=== PATIENT | female | born 1975 | race African-American/Black ===

== ENCOUNTER 2024-08-11 10:28 | Outpatient (CLI) | payer OTHER, SELFPAY ==
--- NOTE | 2024-08-11 10:36 | ECG_ITS ---
Test Date: 2024-08-11 10:55:46 Measurements Intervals [place] Rate: 71 P: 45 ND: 181 QRS: 62 QRSD: 90 T: 20 QT: 374 QTc: 407 Interpretive Statements SINUS RHYTHM WITH SINUS ARRHYTHMIA BASELINE ARTIFACT- I, II, AVR NORMAL ECG No previous ECG available for comparison Electronically Signed On 08-11-2024 10:57:48 EVAPORATOR OPERATOR by Lamberto Lai D.O.
[2024-08-11 11:35] LABS: Hematocrit 31.7 % (37.0-47.0); Hemoglobin 9.8 g/dL (12.0-15.0); Mean Corpuscular HGB Conc 30.9 g/dl (32-36); Mean Corpuscular Hemoglobin 26.1 pg (26-34); Mean Corpuscular Volume 84.5 fl (80-100); Mean Platelet Volume 9.2 fl (7.4-10.4); Platelet Count Result 367 k/mm3 (150-375); Red Blood Count 3.75 M/mm3 (4.2-5.4); Red Cell Distribution Width 13.9 % (11.5-14.5); White Blood Count 5.9 K/mm3 (4.5-10.0)
== END 2024-08-11 10:29 | disposition home or self-care (01) ==
PROVIDERS: PCP Internal Medicine; Visit Provider Obstetrics & Gynecology
DX: Z01.818 Encounter for other preprocedural examination (principal); I49.8 Other specified cardiac arrhythmias; N92.0 Excessive and frequent menstruation with regular cycle; I10 Essential (primary) hypertension
CPT/HCPCS: 36415; 85027; 86850; 86900; 86901; 93005

== ENCOUNTER 2024-09-07 07:52 | Outpatient (CLI) | payer OTHER, SELFPAY | END 2024-09-07 07:53 | disposition home or self-care (01) | LOC: ANHSURGERY 08:09 | PROVIDERS: PCP Internal Medicine; Visit Provider Obstetrics & Gynecology | DX: Z01.818 Encounter for other preprocedural examination (principal); N85.2 Hypertrophy of uterus | CPT/HCPCS: 36415; 86850; 86900; 86901 ==

== ENCOUNTER 2024-10-23 09:21 | Outpatient (CLI) | payer OTHER, SELFPAY ==
[2024-10-23 10:07] LABS: Hematocrit 29.3 % (37.0-47.0); Hemoglobin 8.9 g/dL (12.0-15.0); Mean Corpuscular HGB Conc 30.4 g/dl (32-36); Mean Corpuscular Hemoglobin 22.9 pg (26-34); Mean Corpuscular Volume 75.3 fl (80-100); Platelet Count Result 374 k/mm3 (150-375); Red Blood Count 3.89 M/mm3 (4.2-5.4); Red Cell Distribution Width 17.4 % (11.5-14.5); White Blood Count 6.5 K/mm3 (4.5-10.0)
== END 2024-10-23 09:22 | disposition home or self-care (01) ==
PROVIDERS: PCP Internal Medicine; Visit Provider Obstetrics & Gynecology
DX: D25.9 Leiomyoma of uterus, unspecified (principal)
CPT/HCPCS: 36415; 85027; 86850; 86900; 86901

== ENCOUNTER 2024-10-26 00:36 | Day surgery (SDC) | payer OTHER, SELFPAY ==
[2024-08-09 11:03] VITALS: BMI 35.8
--- NOTE | 2024-08-09 11:04 | PC.NURSE ---
Report to the Outpatient Waiting Room, entrance under the green pavilion located off [facility], at time _0600_ on date _[id number]_. Planned Procedure Time: _0730_.? Time changes happen often and if your time is changed the preop area will call you the afternoon before. - You and your visitor will be asked to self-screen and do not enter if you have any COVID symptoms. Please call surgeon if you need to reschedule. - A mask is optional within the hospital at this time. Patients may have clear liquids (water, carbonated beverages, clear teas, apple juice) until 3 hours prior to surgery with a maximum of 20 ounces. - No food from midnight until time of surgery and no smoking Take only the following medications with a SIP of water on the morning of surgery: __Diltiazem__ DO NOT STOP ANY OF YOUR OTHER PRESCRIPTION MEDICATIONS PRIOR TO SURGERY EXCEPT THE FOLLOWING Medications to discontinue per physician ___Vitamins and supplements___ Date to take last aufk__[id number]___ Please no make-up, nail maldivian, hairspray, perfume, deodorant, or body powder the day of surgery.? No jewelry (including any body piercings) or valuables the day of surgery, leave them at home.? Please take a shower or bath the night before, or the morning of, surgery with an antibacterial soap.? Wear comfortable, loose fitting clothing.? - Jewelry must be removed prior to entering the operating room.? Rings and piercings that are not removed may be cut off. - The hospital will not accept responsibility for valuables.? - Please leave all valuables, including medications, at home the day of surgery. If you are going home after surgery, a licensed national dedicated truck driver must drive you home.? - NO public transportation without another adult if you receive anesthesia. - We recommend that an adult stay with you for 24 hours following discharge. - We also recommend that you do not drive, make important decision, drink alcoholic beverages, or take any drugs that were not prescribed by your health care provider for at least 24 hours after your discharge time. Follow any additional instructions given to you from your surgeon. Telephone instructions given to __Cheryle__and asked if any additional questions and then verbalized understanding. Patient advised to call surgeon office or pre surgery nurse liaison [phone] if any additional questions.
--- NOTE | 2024-09-05 12:23 | PC.NURSE ---
Patient states, there are no changes in health history or medications since last interview. She will come to [facility] for her Type and Screen.
--- NOTE | 2024-09-05 12:27 | PC.NURSE ---
Report to the Outpatient Waiting Room, entrance under the green pavilion located off [facility], at 0630 on 09-14-24. Planned Procedure Time: 0830.? Time changes happen often and if your time is changed the preop area will call you the afternoon before. - You and your visitor will be asked to self-screen and do not enter if you have any COVID symptoms. Please call surgeon if you need to reschedule. - A mask is optional within the hospital at this time. Patients may have clear liquids (water, carbonated beverages, clear teas, apple juice) until 3 hours prior to surgery with a maximum of 20 ounces. 0530 - No food from midnight until time of surgery and no smoking. This includes no chewing gum, candy or mints. - Infants may have breast milk until 4 hours before surgery, infant formula 6 hours prior to surgery. - Children will be allowed to drink immediately following surgery.? If applicable, please bring a bottle or sippy cup to assist with drinking. Juice, water, soda, and popsicles are readily available.? For infants on formula, please bring formula the day of surgery.? Pacifiers are allowed. Take only the following medications with a SIP of water on the morning of surgery: Diltiazem DO NOT STOP ANY OF YOUR OTHER PRESCRIPTION MEDICATIONS PRIOR TO SURGERY EXCEPT THE FOLLOWING Medications to discontinue per physician: Vitamins and supplements Date to take last dose: 09-11-24 Please no make-up, nail nepali, hairspray, perfume, deodorant, or body powder the day of surgery.? No jewelry (including any body piercings) or valuables the day of surgery, leave them at home.? Please take a shower or bath the night before, or the morning of, surgery with an antibacterial soap.? Wear comfortable, loose fitting clothing.? Children are encouraged to wear pajamas. - Jewelry must be removed prior to entering the operating room.? Rings and piercings that are not removed may be cut off. - The hospital will not accept responsibility for valuables.? - Please leave all valuables, including medications, at home the day of surgery. If you are going home after surgery, a licensed sales route driver helper must drive you home.? - NO public transportation without another adult if you receive anesthesia. - We recommend that an adult stay with you for 24 hours following discharge. - We also recommend that you do not drive, make important decision, drink alcoholic beverages, or take any drugs that were not prescribed by your health care provider for at least 24 hours after your discharge time. For Pediatric surgeries, we recommend two adults accompany the child home. Follow any additional instructions given to you from your surgeon. Telephone instructions given to Cheryle Naranjo and asked if any additional questions and then verbalized understanding. Patient advised to call surgeon office or pre surgery nurse liaison [phone] if any additional questions.
--- NOTE | 2024-10-18 10:22 | PC.NURSE ---
Report to the Outpatient Waiting Room, entrance under the green pavilion located off [facility], at time _0800_ on date _[id number]_. Planned Procedure Time: _1000_.? Time changes happen often and if your time is changed the preop area will call you the afternoon before. - You and your visitor will be asked to self-screen and do not enter if you have any COVID symptoms. Please call surgeon if you need to reschedule. - A mask is optional within the hospital at this time. Patients may have clear liquids (water, carbonated beverages, clear teas, apple juice) until 3 hours prior to surgery with a maximum of 20 ounces. - No food from midnight until time of surgery and no smoking. This includes no chewing gum, candy or mints. Take only the following medications with a SIP of water on the morning of surgery: ___Diltiazem____ DO NOT STOP ANY OF YOUR OTHER PRESCRIPTION MEDICATIONS PRIOR TO SURGERY EXCEPT THE FOLLOWING Medications to discontinue per physician ___Vitamin___ Date to take last okon____[id number]___ Please no make-up, nail serbian, hairspray, perfume, deodorant, or body powder the day of surgery.? No jewelry (including any body piercings) or valuables the day of surgery, leave them at home.? Please take a shower or bath the night before, or the morning of, surgery with an antibacterial soap.? Wear comfortable, loose fitting clothing.? - Jewelry must be removed prior to entering the operating room.? Rings and piercings that are not removed may be cut off. - The hospital will not accept responsibility for valuables.? - Please leave all valuables, including medications, at home the day of surgery. If you are going home after surgery, a licensed concrete pile driver operator must drive you home.? - NO public transportation without another adult if you receive anesthesia. - We recommend that an adult stay with you for 24 hours following discharge. - We also recommend that you do not drive, make important decision, drink alcoholic beverages, or take any drugs that were not prescribed by your health care provider for at least 24 hours after your discharge time. Follow any additional instructions given to you from your surgeon. Telephone instructions given to __Erisi__and asked if any additional questions and then verbalized understanding. Patient advised to call surgeon office or pre surgery nurse liaison [phone] if any additional questions.
--- NOTE | 2024-10-18 10:30 | PC.NURSE ---
Patient says is taking and antibiotic fa a UTI that will be completed before surgery date. Says no other changes to health hx.
--- NOTE | 2024-10-23 15:39 | PM.IMHP ---
H&P: HPI History of Present Illness Date/Time: 10/23/24 15:39 49-year-old 3 para 3003 female presents with complaints of menstrual cycles lasting 7-8 days with 4-5 days very heavy with clotting and cramping as well as significant amount of discomfort during her cycles. Also relates left lower quadrant pain throughout the month especially with increasing activity. She has had known chronic anemia with a most recent hemoglobin of 8.9, also ultrasound which revealed [id number] uterus with multiple fibroids, largest being left lateral 7cm fibroid. She does relate fatigue and tiredness, especially during her menstrual cycle. Presents therefore today for robotic assisted laparoscopic hysterectomy with bilateral salpingectomy, no oophorectomy. History significant for vaginal delivery x3, no prior abdominal or pelvic surgery. Chief Complaint: Symptomatic uterine fibroids Review of Systems Review of Systems: All systems reviewed & are unremarkable except as noted in HPI and below PMFSH Past Medical History Medical History Screening mammogram, encounter for Hypertension Social History Social History Smoking status: Never smoker Second hand tobacco smoke exposure: No Alcohol intake: current Alcohol use details: occasionally Substance use: current Substance use type: marijuana Other substance usage details: Edible here and there, not every day. Do You Feel Safe in your Home?: Yes Lack of Transportation: No Lack of Food: Never True Current Housing: Decline to Answer Concerned About Future Housing: Decline to Answer Difficulty Paying Gas/Electric Bills: Decline to Answer Difficulty Paying for Meds: Decline to Answer Currently Unemployed: Decline to Answer Education: Decline to Answer Difficulty w/ Childcare or Family Care: Decline to Answer Living arrangements: with family Additional living arrangements comments: single Occupation/Education: occupation Additional occupation/education comments: [employer] Gender identity (if verbalized by the patient): Female Sexual Orientation (if Verbalized by the Patient): Straight or Heterosexual Spiritual care concerns: No Meds Home Medications and Allergies Home Medications ?Medication ?Instructions ?Recorded ?Confirmed ?Type losartan 50 mg tablet 100 mg PO DAILY 05/23/24 08/21/24 History ascorbic acid-ascorbate 0.75 ml PO DAILY 08/09/24 08/21/24 History calcium-ascorbate sod 500 mg/15 mL oral liquid (Vitamin C) diltiazem HCl 180 mg 180 mg PO DAILY 08/09/24 08/21/24 History capsule,extended release 24 hr, controlled Allergies Allergy/AdvReac Type Severity Reaction Status Date / Time No Known Allergies Allergy Verified 10/18/24 10:22 Exam Const: General: cooperative and healthy appearing Resp: Effort & Inspection: normal respiratory effort Auscultation: clear to auscultation bilaterally Cardio: Rate: regular rate Rhythm: regular rhythm GI: Inspection: normal to inspection Auscultation: normal bowel sounds : External Female Exam: normal external appearance Speculum Exam - Vagina: normal appearance of the vagina Speculum Exam - Cervix: normal appearance of the cervix Bimanual exam- vagina & uterus: enlarged ( 12-14 week size with multiple fibroids palpated) Bimanual Exam- Adnexa, other: normal adnexae Assessment and Plan Assessment and plan (1) Menorrhagia: Code(s): N92.0 - Excessive and frequent menstruation with regular cycle Status: Acute (2) Dysmenorrhea: Code(s): N94.6 - Dysmenorrhea, unspecified Status: Acute (3) Bulky or enlarged uterus: Code(s): N85.2 - Hypertrophy of uterus Status: Acute (4) Fibroid uterus: Code(s): D25.9 - Leiomyoma of uterus, unspecified Status: Acute (5) Anemia: Code(s): D64.9 - Anemia, unspecified Status: Acute Plan proceed with robotic assisted laparoscopic total hysterectomy with bilateral salpingectomy, no oophorectomy. I have also discussed patient that we will start the procedure laparoscopically and there is potential for her to have the procedure completed with a laparotomy incision due to lack of visualization or difficulty removing specimen. I have discussed with her also this potentially could increase her length of stay as well as postoperative recovery time. Patient states good understanding, questions been answered, and she desires to proceed with procedure as listed above.
--- NOTE | 2024-10-25 16:09 | WPDANESEPPF ---
Anes - Initial Pre Proc Eval Procedure: Operation Date: 10/26/24 10:00 Proposed Procedures p Robotic Assisted Total Laparoscopic Hysterectomy with Bilateral Salpingectomy - Stefan Moreno MD <Raz Babcock, DO - Last Filed: 10/25/24 16:09> Date/Time: 10/25/24 16:09 <Raz Babcock, DO - Last Filed: 10/25/24 16:09> Surgeon: Stefan Moreno MD <Raz Babcock, DO - Last Filed: 10/25/24 16:09> Pre Op Diagnosis: uterine hypertrophy <Raz Babcock DO - Last Filed: 10/25/24 16:09> Patient Data Age: 49 Gender: F Height: 1.73 m Weight: 106.8 kg <Raz Babcock DO - Last Filed: 10/25/24 16:09> Allergies Allergy/AdvReac Type Severity Reaction Status Date / Time No Known Allergies Allergy Verified 10/26/24 09:37 <Raz Babcock DO - Last Filed: 10/25/24 16:09> Home Medications ?Medication ?Instructions ?Recorded ?Confirmed ?Type losartan 50 mg tablet 100 mg PO DAILY 05/23/24 10/26/24 History ascorbic acid-ascorbate 0.75 ml PO DAILY 08/09/24 10/26/24 History calcium-ascorbate sod 500 mg/15 mL oral liquid (Vitamin C) diltiazem HCl 180 mg 180 mg PO DAILY 08/09/24 08/21/24 History capsule,extended release 24 hr, controlled <Raz Babcock, DO - Last Filed: 10/25/24 16:09> Patient hx anesthesia problems: none <Everardo Sánchez MD - Last Filed: 10/26/24 09:45> Family hx anesthesia problems: none <Everardo Sánchez MD - Last Filed: 10/26/24 09:45> Results Review: All pre-operative results and documents have been reviewed as part of the pre-operative evaluation. <Raz Babcock DO - Last Filed: 10/25/24 16:09> [facility] Past Medical History Medical History: Medical History (Updated 10/25/24 @ 16:09 by Raz Babcock DO) Fibroid uterus Anemia Screening mammogram, encounter for Hypertension <Raz Babcock DO - Last Filed: 10/25/24 16:09> Surgical History Surgical History: Surgical History (Updated 10/26/24 @ 09:44 by Everardo Sánchez MD) History of tubal ligation <Raz Babcock DO - Last Filed: 10/25/24 16:09> Social History Social History: Social History Smoking status: Never smoker Second hand tobacco smoke exposure: No Alcohol intake: current Alcohol use details: occasionally Substance use: current Substance use type: marijuana Other substance usage details: Edible here and there, not every day. Do You Feel Safe in your Home?: Yes Lack of Transportation: No Lack of Food: Never True Current Housing: Decline to Answer Concerned About Future Housing: Decline to Answer Difficulty Paying Gas/Electric Bills: Decline to Answer Difficulty Paying for Meds: Decline to Answer Currently Unemployed: Decline to Answer Education: Decline to Answer Difficulty w/ Childcare or Family Care: Decline to Answer Living arrangements: with family Additional living arrangements comments: single Occupation/Education: occupation Additional occupation/education comments: [employer] Gender identity (if verbalized by the patient): Female Sexual Orientation (if Verbalized by the Patient): Straight or Heterosexual Spiritual care concerns: No <Raz Babcock DO - Last Filed: 10/25/24 16:09> Anes - Eval Final PreProcedure Day of Procedure 10/25/24 16:09 <Raz Babcock DO - Last Filed: 10/25/24 16:09> Patient weight: obese <Everardo Sánchez MD - Last Filed: 10/26/24 09:45> Heart: regular rate and rhythm <Everardo Snáchez MD - Last Filed: 10/26/24 09:45> Lungs: clear to auscultation <Everardo Sánchez MD - Last Filed: 10/26/24 09:45> Airway: Mallampati scale class II <Everardo Sánchez MD - Last Filed: 10/26/24 09:45> Neurological: alert and oriented <Everardo Sánchez MD - Last Filed: 10/26/24 09:45> Last oral intake: >/= 8 hours <Everardo Sánchez MD - Last Filed: 10/26/24 09:45> ASA classification: II <Everardo Sánchez MD - Last Filed: 10/26/24 09:45> Emergent: no <Everardo Sánchez MD - Last Filed: 10/26/24 09:45> Anesthetic plan: proceed <Everadro Sánchez MD - Last Filed: 10/26/24 09:45> Anesthesia type and monitoring: general ETT and standard monitoring <Everardo Sánchez MD - Last Filed: 10/26/24 09:45> Results Review: All pre-operative results and documents have been reviewed as part of the pre-operative evaluation. <Raz Babcock DO - Last Filed: 10/25/24 16:09> Informed Consent: The patient's anesthetic plan and its attendant risks and benefits were discussed with the patient/family/POA. Questions were solicited and answers provided to the satisfaction of the patient/family/POA. <Raz Babcock DO - Last Filed: 10/25/24 16:09>
[2024-10-26] VITALS (12 sets, daily range): BP systolic 117–147; BP diastolic 78–92; PULSE 63–96; RESP 12–20; TEMP 35.5–36.6; O2SAT 95–100
--- NOTE | 2024-10-26 06:14 | WPDHPUPDATE1 ---
History and Physical Update Update Date/Time: 10/26/24 06:14 History and Physical has been reviewed, including an updated exam of the patient. There are NO changes in the patient's condition. Risks, benefits, and alternatives have been discussed and questions answered. Patient agrees to proceed with procedure.
[2024-10-26] MEDS: LACTATED RINGERS 1,000 ML 30 ML IV CONT (08:40)
[2024-10-26] MEDS: ACETAMINOPHEN 500 MG TABLET 1000 MG PO ×3 (08:40→21:00)
[2024-10-26] MEDS: KETOROLAC 15 MG/ML VIAL (*BKC) IV PUSH (08:40)
[2024-10-26 09:37] LABS: BEDSIDEPREGUCG Negative (Negative)
[2024-10-26] MEDS: ceFAZolin 2 GM/D5W 50 ML 2 GM/50 ML BAG IVPB (09:58)
--- NOTE | 2024-10-26 11:39 | W.PM.PROC2 ---
Procedure Note - Detailed Date of Procedure 10/26/24 Pre-op Diagnosis 1. Symptomatic uterine fibroids 2. Anemia Post-op Diagnosis Same Procedure Performed Description of procedure: Patient prepped and draped usual manner for this procedure. Cervical instruments were placed for uterine mobility throughout the case. Abdominal trocar sites were then marked and trocars were placed under direct visualization. Trocars were attached to the de Nery system and instruments were placed as well. Findings were noted as below. Surgeon moved to the console and round ligaments bilaterally were cauterized and cut and bladder flap was developed. The left lateral fibroid was then bluntly dissected off the pelvic sidewall without difficulty and at this point the posterior leaf the broad ligament was incised. Uterine vessels were dissected and cauterized and cut. Posterior cul-de-sac was then entered and this incision was carried circumferentially to separate the cervix from the vagina. The uterus and fibroid could not be removed together therefore the uterus was excised from the uterus the uterus was delivered followed by the fibroid without difficulty. Cuff was then closed using V lock suture from the right angle to midline and left angle midline with good approximation hemostasis noted irrigation was undertaken and there was no bleeding hematoma was placed empirically throughout the pelvic bed. This point seizure was considered terminated, gas was allowed to escape, trocars removed and incisions approximated using 4-0 Monocryl. Patient was sent to recovery room in stable condition. Surgeon Stefan Moreno MD Anesthesia General Findings Enlarged uterus with fibroids with weight of 425 g Description of Procedure Procedure performed: Robotic assisted total laparoscopic hysterectomy with bilateral salpingectomy, no oophorectomy Estimated Blood Loss 200 Drains No Packing No Pathology Yes Complications No immediate complications Condition Stable Disposition PACU [facility] Billing Surgery - Charge Forward: Surgery Billing
[2024-10-26] MEDS: fentaNYL CITRATE INJ (*CRX) 100 MCG/2 ML VIAL 25 MCG IV PUSH ×4 (12:05→13:15)
[2024-10-26] MEDS: ONDANSETRON INJ 4 MG/2 ML VIAL IV PUSH (12:08)
[2024-10-26] MEDS: diphenhydrAMINE HCl INJ 50 MG/ML VIAL 25 MG IV PUSH (12:54)
[2024-10-26] MEDS: SCOPOLAMINE 1 MG PATCH 1 PATCH TRANSDERM (12:55)
--- NOTE | 2024-10-26 13:30 | ADMGEN ---
This patient, Cheryle Naranjo, was admitted to OB 2nd Floor Room 283-00. Patient/family oriented to hospital policies and general routines including ID bracelet, bed and alarms, visiting hours, pain management, procedures, bathroom and other care routines, personal items, smoking policy, room service/diet, and visiting hours. Information on how to activate the Rapid Response Team has been discussed. Patient/Family are encouraged to report perceived risks to care and to ask questions if they do not understand what they are told or what they should do.
[2024-10-26] MEDS: DEXTROSE 5%/0.45% SOD CHL 1,000 ML 125 ML IV CONT (13:51)
[2024-10-26] MEDS: MORPHINE SULFATE (*CRX) 4 MG/ML INJ IV PUSH (13:51)
--- NOTE | 2024-10-26 13:53 | PC.NURSE ---
On 10/26/24, the [employer] student, Chaya, provided care and completed [facility] documentation on this patient. I have reviewed the student's documentation and agree with the findings.
[2024-10-26] MEDS: SIMETHICONE 80 MG TAB.CHEW PO ×2 (14:52→17:33)
[2024-10-26] MEDS: KETOROLAC 30 MG/ML VIAL (*BKC) IV PUSH ×2 (14:52→20:59)
[2024-10-26] MEDS: DOCUSATE SODIUM 100 MG CAPSULE PO (17:33)
[2024-10-27] VITALS (11 sets, daily range): BP systolic 100–134; BP diastolic 62–86; PULSE 70–88; RESP 14–18; TEMP 36.4–37.2; O2SAT 97–100
[2024-10-27] MEDS: ACETAMINOPHEN 500 MG TABLET 1000 MG PO ×3 (03:02→14:50)
[2024-10-27] MEDS: KETOROLAC 30 MG/ML VIAL (*BKC) IV PUSH (03:03)
[2024-10-27 05:52] LABS: Basophils Percent Auto 0.1 % (0.2-1.2); Eosinophils Percent Auto 0.1 % (0-4.4); Hematocrit 24.8 % (37.0-47.0); Hemoglobin 7.3 g/dL (12.0-15.0); Immature Granulocyte Absolute 0.04 K/mm3 (0.00-0.031); Immature Granulocyte Percent A 0.4 % (0-0.5); Lymphocytes Absolute Auto 1.14 K/mm3 (0.9-3.2); Lymphocytes Percent Auto 10.9 % (18.3-44.2); Mean Corpuscular HGB Conc 29.4 g/dl (32-36); Mean Corpuscular Hemoglobin 22.5 pg (26-34); Mean Corpuscular Volume 76.5 fl (80-100); Mean Platelet Volume 9.6 fl (7.4-10.4); Monocytes Absolute Auto 0.9 K/mm3 (0.1-0.6); Neutrophils Absolute Auto 8.3 K/mm3 (1.3-6.7); Neutrophils Percent Auto 79.5 % (45.5-73.1); Platelet Count Result 345 k/mm3 (150-375); Red Blood Count 3.24 M/mm3 (4.2-5.4); Red Cell Distribution Width 17.4 % (11.5-14.5); White Blood Count 10.5 K/mm3 (4.5-10.0)
[2024-10-27 06:28] LABS: Acanthocytes 1+; Burr Cells 1+; Ovalocytes 1+; Platelet Estimate Adequate (Adequate); Schistocytes None Seen
[2024-10-27 06:29] LABS: Anisocytosis 1+; Hypochromasia 1+
[2024-10-27] MEDS: SIMETHICONE 80 MG TAB.CHEW PO ×2 (08:21→14:50)
[2024-10-27] MEDS: DOCUSATE SODIUM 100 MG CAPSULE PO (08:21)
[2024-10-27] MEDS: dilTIAZem HCL CD 180 MG CAP.24HR PO (08:22)
[2024-10-27] MEDS: IBUPROFEN 600 MG TABLET PO ×2 (08:22→14:50)
[2024-10-27] MEDS: SODIUM CHLORIDE 0.9% IV 250 ML 30 ML IV CONT (08:22)
[2024-10-27] MEDS: LOSARTAN POTASSIUM 50 MG TABLET 100 MG PO (08:22)
[2024-10-27] MEDS: SODIUM CHLORIDE 0.9% IV 250 ML 30 ML (08:24)
== END 2024-10-27 15:40 | disposition home or self-care (01) ==
LOC: ANHSURGERY 07:34 → ANHOB2 13:29
PROVIDERS: PCP Internal Medicine; Visit Provider Obstetrics & Gynecology
PROC: (CPT 58572; principal; 2024-10-26 10:00)
DX: D25.1 Intramural leiomyoma of uterus (principal); D25.0 Submucous leiomyoma of uterus; D25.2 Subserosal leiomyoma of uterus; N80.03 Adenomyosis of the uterus; I10 Essential (primary) hypertension; G89.18 Other acute postprocedural pain; D64.9 Anemia, unspecified; F12.90 Cannabis use, unspecified, uncomplicated; Z98.890 Other specified postprocedural states; Z98.51 Tubal ligation status
CPT/HCPCS: 58572; S2900; 36415; 36430; 85025; 86920; 88307; 99199; A9270; J0690; J1200; J1596; J1885; J2250; J2270; J2405; J2704; J2710; J3010; J7030; J7050; J7120; P9016

== ENCOUNTER 2025-02-16 09:45 | Outpatient (CLI) | payer OTHER, SELFPAY ==
--- OUTSIDE RECORDS SUMMARY | 2025-02-16 09:49 | XMS_ITS | Clinical Summary ---
Author Organization [facility] Address [address] [place] [address] Care Team Providers Care Senior Etl Developer Name Role Phone Unavailable Primary Care Provider Unavailabl e Allergies Active Allergy Reactions Criticality Noted Date Comments Grass Pollen Hives,Itching Medium 10/09/2021 Medications losartan-hydrochlo rothiazide (HYZAAR) 100-25 mg tablet Active Active Problems Problem Noted Date Diagnosed Date Primary hypertension 10/09/2021 Overview (01/15/2022): Last Assessment & Plan: Chlorthalidone added on last visit. bp marked improved Pt will follow up in 6 months. She is working on loosing wt and we discussed stopping nifedipine if her BP becomes Low/ symptoms.. BMI 38.0-38.9,adult 10/09/2021 Overview (01/15/2022): Last Assessment & Plan: BMI Follow-up includes: nutrition counseling, exercise counseling and education provided. Social History Tobacco Use Types Packs/Day Years Used Date Smoking Tobacco: Never Smokeless Tobacco: Never Alcohol Use Standard Drinks/Week Comments Never 0 (1 standard drink = 0.6 oz pur e alcohol) Comments Unknown Sex and Gender Information Value Date Recorded Sex Assigned at Not on file Legal Sex Female 8:14 AM PDT Gender Identity Female 09/16/2021 4:58 PM PST Sexual Orientation Not on file Last Filed Vital Signs Vital Sign Reading Time Taken Comments Blood Pressure 116/68 01/15/2022 9:29 AM CDT Pulse 79 01/15/2022 9:29 AM CDT Temperature - - Respiratory Rate - - Oxygen Saturation - - Inhaled Oxygen Concentration - - Weight - - Height - - Body Mass Index - - Plan of Treatment Health Maintenance Due Date Last Done Comments Dental X-Ray: Bitewings 01/29/2022 07/30/2021 Dental Oral Exam 07/18/2022 01/15/2022, 07/30/2021 Dental Prophylaxis 07/18/2022 01/15/2022, 07/30/2021 Dental X-Ray: Full Mouth 08/10/2024 08/09/2021, 07/05 Dental X-Ray: Panoramic 03/08/2025 03/07/2022, 07/16 Meningococcal B Vaccine Aged Out No l onger eligible based on patient's age to complete this topic Procedures Procedure Name Priority Date/Time Associated Diagnosis Comments PROPHYLAXIS - ADULT Routine 01/15/2022 9 :30 AM CDT PERIODIC ORAL EVALUATION - ESTABLISHED PATIENT Routine 01/15/2022 9:30 AM CDT INTRAORAL - COMPREHENSIVE SERIES OF RADIOGRAPHIC IMAGES Routine 07/30/2021 2:00 AM CDT PANORAMIC RADIOGRAPHIC IMAGE Routine 07/16/2021 2:00 AM CDT from Last 3 Months or Most Recently Relevant to Health Maintenance Insurance
--- OUTSIDE RECORDS SUMMARY | 2025-02-16 09:49 | XMS_ITS | Referral Summary ---
Author Organization [facility] Address [address] [facility] [address] [place] [address] Phone Care Team Providers Care Bevel Mill Operator Name Role Phone Jerri Bo MD Primary Care Provider [phone] Allergies Active Allergy Reactions Criticality Noted Date Comments Grass Pollen Hives,Itching Medium 10/09/2021 Medications chlorthalidone (HYGROTON) 25 mg tabletIndications :Primary hypertension Take 1 tablet (25 mg total) by mouth daily 90 tablet 11/29/2023 Active losartan (COZAAR) 50 mg tabletIndications :Primary hypertension Take 1 tablet (50 mg total) by mouth daily 90 tablet 11/29/2023 Active Active Problems Problem Noted Date Diagnosed Date Normocytic anemia 07/16/2022 Papanicolaou smear 07/16/2022 Assessment & Plan (07/16/2022 10:13 AM CDT): PAP Smear completed Healthy lifestyle recommended, including regular exercise (daily aerobic & twice weekly resistance training), prudent diet, regular self breast & skin examinations (1 week after cycle begins), annual mammography (starting @ age 40), calcium & vitamin D supplementation, colonoscopy (starting @ age 50 for average risk person), regular gynecologic examinations with pelvic exam & PAP smear, blood pressure monitoring during visits, & bone-density testing (starting @ age 65 in average-risk person). Routine vaccinations recommended, including annual flu vaccine, pneumonia vaccine series (if underlying conditions present or >65), new shingles vaccine (>50), & TDaP booster vaccine (every 10 years). We discussed increasing activity and improving eating habits to improve health. Discussed a plant based diet approch and its proven health benefits, decreasing overall calorie consumption. Daily exercise goal with modest time increments discussed, aerobic and twice weekly resistance training. regular self breast & skin examinations (1 week after cycle begins), annual mammography (starting @ age 35-40)--exceptions made for patients with family history requiring earlier baseline, GC/Chlam screening in all sexually active women. Discussed sexually transmitted infections Pt has been screened forDepression screening. Unhealthy Alcohol use discussed Skin cancer prevention discussed BV (bacterial vaginosis) 07/16/2022 Difficulty in urination 05/16/2022 Assessment & Plan (05/16/2022 9:55 PM CDT): Will check urinalysis. Discomfort may be secondary to vaginal irritation Vaginal itching 05/16/2022 Assessment & Plan (05/16/2022 10:11 PM CDT): Will swab for vaginitis Encounter for preventive health examination 04/2022 Assessment & Plan (11/10/2021 8:43 AM GARDENING SUPERVISOR): All recent/available/pertinent diagnostic testing, relevant ED/hospital notes, relevant real estate listing consultant recommendations reviewed with pt. Healthy lifestyle encouraged, including regular exercise (daily aerobic & twice weekly resistance training), healthful diet with plant emphasis discussed Physical activity for CVD prevention and prevention of obesity-related morbidity and mortality discussed. Regular self breast & skin examinations (1 week after cycle begins), annual mammography (starting @ age 40), Vitamin D supplementation and bone health discussed. Family hx reviewed. Bone- density testing (starting @ age 65 in average-risk persons earlier with higher risks individuals). Colonoscopy (starting @ age 50 for average risk person and earlier with persons with familial and other risk factors), Regular gynecologic examinations with pelvic exam & PAP smear. Periodic blood pressure monitoring. Routine vaccinations recommended, including annual flu vaccine, pneumonia vaccine series (if underlying conditions present or >65), new shingles vaccine (>50), & TDaP booster vaccine (every 10 ys) All questions answered Iron deficiency anemia due to chronic blood loss 11/10/2021 Assessment & Plan (07/16/2022 10:16 AM CDT): Last results endorsed mild anemia nd mild iron deficiency.will recheck labs. Pt continues to have heavy regular menses Assessment & Plan (12/16/2021 4:07 PM CDT): Pt has hx of menorrhagia. Results reviewed and discussed with pt. Mild anemia. Will check iron levels Assessment & Plan (11/10/2021 8:47 AM GARDENING SUPERVISOR): Results reviewed and discussed with pt. Will check iron panel on next visit BMI 34.0-34.9,adult 10/09/2021 Assessment & Plan (07/16/2022 8:33 AM CDT): BMI Follow-up includes: nutrition counseling, exercise counseling and education provided. Assessment & Plan (02/05/2022 11:59 AM CDT): BMI Follow-up includes: nutrition counseling, exercise counseling and education provided. Assessment & Plan (12/16/2021 3:26 PM CDT): BMI Follow-up includes: nutrition counseling, exercise counseling and education provided. Assessment & Plan (11/10/2021 8:28 AM GARDENING SUPERVISOR): BMI Follow-up includes: nutrition counseling, exercise counseling and education provided. Assessment & Plan (10/09/2021 1:36 PM GARDENING SUPERVISOR): BMI Follow-up includes: nutrition counseling, exercise counseling and education provided. We discussed increasing activity and improving eating habits to improve health. Discussed a plant based diet approch and its proven health benefits, decreasing overall calorie consumption. Daily exercise goal with modest time increments discussed. Primary hypertension 10/09/2021 Assessment & Plan (07/16/2022 10:17 AM CDT): Has had to decrease losartan to 50 mg for symptomatic hypotension. Will change prescription Assessment & Plan (05/16/2022 9:54 PM CDT): normotensive Assessment & Plan (12/16/2021 4:10 PM CDT): Chlorthalidone added on last visit. bp marked improved Pt will follow up in 6 months. She is working on loosing wt and we discussed stopping nifedipine if her BP becomes Low/ symptoms.. Assessment & Plan (11/10/2021 8:56 AM GARDENING SUPERVISOR): Uncontrolled. Will change hctz to chlorthalidone 25 mg. Recheck in 1 month Will add carvidilol Assessment & Plan (10/09/2021 1:35 PM GARDENING SUPERVISOR): Not adequately controlled. Pt endorses noncompliance. Will return in 1 month with home monitor for calibration Hypersomnia 10/09/2021 Sleep apnea in adult 10/09/2021 Assessment & Plan (12/16/2021 3:39 PM CDT): Pt states that all symptoms are resolved so she is not interested in pursuing evaluation Assessment & Plan (10/09/2021 1:37 PM GARDENING SUPERVISOR): Symptoms consistent. Will obtain PSG Recurrent occipital headache 10/09/2021 Assessment & Plan (12/16/2021 3:37 PM CDT): Continues to be free of headaches Assessment & Plan (11/10/2021 8:44 AM GARDENING SUPERVISOR): Pt has not had any headaches since last visit Assessment & Plan (10/09/2021 1:36 PM GARDENING SUPERVISOR): Etiology unclear. May be related to poor sleep Chronic fatigue 10/09/2021 Assessment & Plan (10/09/2021 1:33 PM GARDENING SUPERVISOR): Pt wakes up not rested. Feels markedly fatigued on most days. Cannot rule out sleep apnea. Immunizations Immunization Administration Dates Next Due Influenza, Unspecified 02/05/2022(Deferred: Ivory ent Refused) Pfizer SARS-CoV-2 Monovalent Vaccination (12+ Yrs) PURPLE 07/01/2021,05/26/2021 Social History Tobacco Use Types Packs/Day Years Used Date Smoking Tobacco: Never Smokeless Tobacco: Never Alcohol Use Standard Drinks/Week Comments Not Currently 0 (1 standard drink = 0.6 oz pur e alcohol) PHQ-2 Answer Date Recorded PHQ-2 Total Score (If total score is 3 or more points, staff should administer the PHQ-9) 0 07/16/2022 Personal Safety Answer Date Recorded Getting School Help Needed Not on file 09/15 Comments No Sex and Gender Information Value Date Recorded Sex Assigned at Not on file Legal Sex Female 8:40 AM GARDENING SUPERVISOR Gender Identity Female 09/11/2021 9:08 AM GARDENING SUPERVISOR Sexual Orientation Straight 09/11/2021 9: 08 AM GARDENING SUPERVISOR Last Filed Vital Signs Vital Sign Reading Time Taken Comments Blood Pressure 123/81 07/16/2022 8:30 AM CDT Pulse 80 07/16/2022 8:30 AM CDT Temperature 36.3 C (97.4 F) 02/05/2022 11:55 AM CDT Respiratory Rate 18 11/14/2021 2:17 AM GARDENING SUPERVISOR Oxygen Saturation 98% 07/16/2022 8:30 AM CDT Inhaled Oxygen Concentration - - Weight 103.4 kg (228 lb) 07/16/2022 8:30 AM CDT Height 172.7 cm (5' 8 ) 07/16/2022 8:30 AM CDT Body Mass Index 34.67 07/16/2022 8:30 AM CDT Plan of Treatment Not on file Procedures Procedure Name Priority Date/Time Associated Diagnosis Comments PAP AND HIGH RISK HPV, REFLEX TO GENOTYPING Routine 07/16/2022 9:05 AM CDT SCREENING MAMMOGRAM BILATERAL W THEODORE Schedule Routine, Read Routine (OP Routine) 10/14/2021 2:53 PM GARDENING SUPERVISOR Breast cancer screening by mammogram HEPATITIS C ANTIBODY Routine 10/09/2021 2:11 PM GARDENING SUPERVISOR Need for hepatitis C screening test from Last 3 Months or Most Recently Relevant to Health Maintenance Results * Pap and High Risk HPV, reflex to Genotyping (07/16/2022 9:05 AM CDT) Pap test 07/16/2022 9:05 AM CDT 07/17/2022 5:48 AM CDT Narrative 07/24/2022 2:39 PM CDT EPIC results best viewed via link to PDF [facility] [place] [address] Note to Patients: This report may contain a detailed description of human tissue sent by a health care provider to the laboratory for pathologic evaluation. The content of this report is essential for diagnosis and may provide important critical findings. This information may be unfamiliar to patients to review without a medical professional present. It is advised that the patient review this report in the presence of a health care provider who can answer questions and explain the details. CYTOPATHOLOGY REPORT FINAL Patient Name: REID NARANJO Gender: Carol : 1975 (Age: 46) Address: [address] [place] [address] [facility] #: [id number] Service: TONGUE CARRIER Location: Patient Type: [facility] SPECIMEN Taken: 07/16/2022 Received: 07/17/2022 Accessioned: 07/20/2022 Reported: 07/24/2022 Physician(s): Jerri Bo M.D. FINAL INTERPRETATION SOURCE OF SPECIMEN: Liquid based Thin Prep pap with HPV STATEMENT OF ADEQUACY: - Satisfactory for evaluation - Endocervical cells/transformation zone sample present GENERAL CATEGORY: - Negative for squamous intraepithelial lesion or malignancy DESCRIPTION: - Reactive cellular changes associated with inflammation Comments HPV Result: NEGATIVE for high risk types of Human Papilloma Virus (HPV) RNA This probe detects the presence of HPV types: 16, 18, 31, 33, 35, 39, 45, 51, 52, 56, 58, 59, 66 and 68. This HPV test was performed at [facility] in [place], [place] utilizing the Gen-Probe Aptima assay. dxs/07/24/2022 10:26 By this signature, I attest that the above diagnosis is based upon my personal examination of the slides(and/or other material indicated in the diagnosis). Crystal Solis M.D. Report Electronically Reviewed and Signed Out By Crystal Solis M.D. 07/24/2022 14:39:32 Senthil Macario, [facility](ASCP), [facility] Cervicovaginal Cytology (Pap Test) Disclaimer: The Pap test is a screening test used to detect cervical cancer and its precursors; it is not a diagnostic procedure. False negative and false positive results do occur. Pap test results should be interpreted in the context of pertinent clinical information and biopsy results as indicated. Gross Description A. Liquid based Thin Prep pap with HPV: Cervical/vaginal - Screening ThinPrep with HPV Clinical Diagnosis and History Last Menstrual Period: 06/2022 Menstrual History: Regular Cycles Previous Atypia: No The patient is a 46 year old woman with routine screening. The HPV test was performed by [facility], [address] [place] [address]. Report Images and scanned documents, if included only viewable in PDF version The performance characteristics of some immunohistochemical stains, in-situ hybridization and fluorescence in-situ hybridization tests and immunophenotyping by flow cytometry cited in this report (if any) were determined by the Surgical Pathology Department at [facility] as part of an ongoing it quality analyst program and in compliance with federally mandated regulations drawn from the Clinical Laboratory Improvement Act of 1988 (CLIA '88). Some of these tests rely on the use of analyte specific reagents and are subject to specific labeling requirements by the US Food and Drug Administration. Such diagnostic tests may only be performed in a facility that is certified by the Department of Health and Human Services as a high complexity laboratory under CLIA '88. The FDA has determined that such clearance or approval is not necessary. This test is used for clinical purposes. It should not be regarded as investigational or for research. Nevertheless, federal rules concerning the medical use of analyte specific reagents require that the following disclaimer be attached to the report: This test was developed and its performance characteristics determined by the Surgical Pathology Department of [facility]. It has not been cleared or approved by the U. S. Food and Drug Administration. Jerri Bo MD LAB CYTOLOGY ORDERABLES Final Result * Screening Mammogram Bilateral W Theodore (10/14/2021 2:53 PM GARDENING SUPERVISOR) Anatomical Region Laterality Modality Breast Bilateral Mammography Narrative 10/16/2021 11:30 AM GARDENING SUPERVISOR Mammogram Technique: Bilateral Digital Breast Tomosynthesis, Bilateral C-view 2D Screening mammogram. Views obtained: bilateral craniocaudal and bilateral mediolateral oblique. Computer Aided Detection was performed. Mammogram Findings: This is a baseline study. There are scattered areas of fibroglandular density. There is no suspicious abnormality in either breast. Impression: There is no mammographic evidence of malignancy. Annual screening mammography is recommended. OVERALL FINAL ASSESSMENT: BI-RADS CATEGORY 1: Negative. Procedure Note Kath Nava MD - 10/16/2021 Mammogram Technique: Bilateral Digital Breast Tomosynthesis, Bilateral C-view 2D Screening mammogram. Views obtained: bilateral craniocaudal and bilateral mediolateral oblique. Computer Aided Detection was performed. Mammogram Findings: This is a baseline study. There are scattered areas of fibroglandular density. There is no suspicious abnormality in either breast. Impression: There is no mammographic evidence of malignancy. Annual screening mammography is recommended. OVERALL FINAL ASSESSMENT: BI-RADS CATEGORY 1: Negative. Jerri Bo MD IMG MAMMO PROCEDURES Final Re sult * Hepatitis C antibody (10/09/2021 2:11 PM GARDENING SUPERVISOR) Hep C Ab NON-REACTI VE NON-REACT DC [facility] SIGNAL TO CUT-OFF 0.05 <1.00 [facility] Comment: HCV antibody was non-reactive. There is no laboratory evidence of HCV infection. In most cases, no further action is required. However, if recent HCV exposure is suspected, a test for HCV RNA (test code 67754) is suggested. For additional information please refer to http://education.[employer]/faq/DHX29x9 (This link is being provided for informational/ educational purposes only.) Blood specimen (specimen) 10/09/2021 2:11 PM GARDENING SUPERVISOR 10/10/2021 11:58 PM GARDENING SUPERVISOR us Jerri Bo MD LAB MICROBIOLOGY - GENERAL OR DERABLES Final Result [facility] [place] [address] [phone] from Last 3 Months or Most Recently Relevant to Health Maintenance Insurance [facility]ICE PLUS [facility] H[facility]/PPO Address: [facility] [address] [place] [address] [place] [employer] [facility] CHOICE PLUS [facility] H[facility]/PPO Address: [address] [address] [place] [address] [facility] DEPARTMENT OF LABOR Care Teams Bevel Mill Operator Relationship Specialty Start Date End Date Jerri Bo MD PCP - General Family Medicine 10/09/21
--- OUTSIDE RECORDS SUMMARY | 2025-02-16 09:49 | XMS_ITS | Encounter Summary ---
Author Organization [facility] [address] [place] [address] Care Team Providers Care Limousine Rental Clerk Name Role Phone Unavailable Primary Care Provider Unavailabl e Prior Encounters Date Type Department Care Team Description 03/06/2022 10:00 AM CDT Consult [facility] [address] [place] [phone] Shai Leigh 01/15/2022 Travel 01/15/2022 9:30 AM CDT Office Visit [facility] [address] [phone] David Stapleton DDS 09/17/2021 Travel 09/17/2021 9:00 AM MUSEUM SECURITY CHIEF Office Visit [facility] [address] [place] [phone] David Stapleton DDS 10/23/2019 Converted CPS Chart Documents [facility] [address] [place] [phone] <No scans attached> 10/23/2019 Converted 13x Documents [facility] [address] [place] [phone] <No scans attached> Last Filed Vital Signs Vital Sign Reading Time Taken Comments Blood Pressure 116/68 01/15/2022 9:29 AM CDT Pulse 79 01/15/2022 9:29 AM CDT Temperature - - Respiratory Rate - - Oxygen Saturation - - Inhaled Oxygen Concentration - - Weight - - Height - - Body Mass Index - - Plan of Treatment Not on file Procedures Procedure Name Priority Date/Time Associated Diagnosis Comments TOPICAL APPLICATION OF FLUORIDE VARNISH Routine 01/15/2022 9:30 AM CDT PROPHYLAXIS - ADULT Routine 01/15/2022 9 :30 AM CDT PERIODIC ORAL EVALUATION - ESTABLISHED PATIENT Routine 01/15/2022 9:30 AM CDT 18 REDO FILLINGS Routine 09/17/2021 9:00 AM MUSEUM SECURITY CHIEF 19 MARBELLA RESIN-BASED COMPOSITE - TWO SURFACES, POSTERIOR Routine 09/17/2021 9:00 AM MUSEUM SECURITY CHIEF ORAL HYGIENE INSTRUCTIONS Routine 2020 2:00 AM CDT TOPICAL APPLICATION OF FLUORIDE VARNISH Routine 07/30/2021 2:00 AM CDT PROPHYLAXIS - ADULT Routine 07/30/2021 2 :00 AM CDT COMPREHENSIVE ORAL EVALUATION - NEW OR ESTABLISHED PATIENT Routine 07/30/2021 2:00 AM CDT INTRAORAL - COMPREHENSIVE SERIES OF RADIOGRAPHIC IMAGES Routine 07/30/2021 2:00 AM CDT INTRAORAL PHOTO Routine 07/30/2021 2:00 AM CDT INTRAORAL PHOTO Routine 07/30/2021 2:00 AM CDT INTRAORAL PHOTO Routine 07/30/2021 2:00 AM CDT INTRAORAL PHOTO Routine 07/30/2021 2:00 AM CDT 18 LIMITED ORAL EVALUATION - PROBLEM FOCUSED Routine 07/16/2021 2:00 AM CDT PANORAMIC RADIOGRAPHIC IMAGE Routine 07/16/2021 2:00 AM CDT ADDITIONAL X-RAY Routine 07/16/2021 2:00 AM CDT SINGLE X-RAY Routine 07/16/2021 2:00 AM CDT 18 COMPOSITE FILLING Routine 2:00 AM CDT Visit Diagnoses Not on file Insurance [facility] PPO Member Subscriber Plan / Payer (Ef fective 2021-Present) Name:Cheryle Naranjo Relation to Subscriber:Self Name:Cheryle Naranjo Payer ID:[id number] Group ID:[id number] Type:Not on file Address: [address] [address] [address] [id number]
--- OUTSIDE RECORDS SUMMARY | 2025-02-16 09:49 | XMS_ITS | Clinical Summary ---
Author Organization [facility] Address [facility] [place] [address] Care Team Providers Care Door And Arrival Attendant Name Role Phone Migel Virk MD Primary Care Provider [phone] Allergies Active Allergy Reactions Criticality Noted Date Comments Grass Pollen(K-O-R-T-Swt Jerry) Hives,Itching Medium Medications losartan (COZAAR) 100 MG tabletIndication s:Primary hypertension Take 1 tablet (100 mg total) by mouth daily. 90 tablet 1 10/13/19 25 Active ferrous sulfate, 65 mg elemental, 325 (65 FE) MG tabletIndication s:Menorrhagia with regular cycle Take 1 tablet (325 mg total) by mouth 2 (two) times daily with meals. 180 tablet 1 10/13/19 25 Active dilTIAZem ER (DILT-XR) 180 MG 24 hr capsuleIndicatio ns:Primary hypertension TAKE 1 CAPSULE(180 MG) BY MOUTH DAILY 90 capsule 01/19/20 25 Active dilTIAZem ER 180 MG 24 hr capsuleIndicatio ns:Primary hypertension Take 1 capsule (180 mg total) by mouth daily. 90 capsule 1 10/13/19 25 025 Discontinued Active Problems Problem Noted Date Diagnosed Date Iron deficiency anemia, unspecified 12/07/2023 Herpes simplex 11/29/2023 Immunizations Immunization Administration Dates Next Due Tdap (Adacel) 11/29/2023 Family History Medical History Relation Comments Hypertension Father Hypertension Maternal Grandmother Relation Status Comments Father Maternal Grandmother Social History Tobacco Use Types Packs/Day Years Used Date Smoking Tobacco: Never Smokeless Tobacco: Never Tobacco Cessation:Counseling Given: Yes Comments:Counseled by Dr. Virk. Alcohol Use Standard Drinks/Week Comments Not Currently 1.7 (1 standard drink = 0.6 oz p ure alcohol) PHQ-2 Answer Date Recorded Patient Health Questionnaire-2 Score 0 11/29/2023 Comments No Sex and Gender Information Value Date Recorded Sex Assigned at Not on file Legal Sex Female 9:39 AM SERVICE PLANNER Gender Identity Not on file Sexual Orientation Not on file Last Filed Vital Signs Vital Sign Reading Time Taken Comments Blood Pressure 130/85 10/13/2024 8:49 AM SERVICE PLANNER Pulse 71 07/05/2024 10:25 AM CDT Temperature 36.3 C (97.4 F) 06/28/2024 9:20 AM CDT Respiratory Rate 16 06/28/2024 9:20 AM CDT Oxygen Saturation 100% 07/05/2024 10:25 AM CDT Inhaled Oxygen Concentration - - Weight 107 kg (236 lb) 10/13/2024 8:49 AM SERVICE PLANNER Height 172.7 cm (5' 8 ) 10/13/2024 8:49 AM SERVICE PLANNER Body Mass Index 35.88 10/13/2024 8:49 AM SERVICE PLANNER Plan of Treatment Upcoming Encounters Date Type Department Care Team (Late st Contact Info) Description 04/13/2025 9:40 AM CDT Office Visit [facility] [place] [address] [address] [place] [address] Migel Virk MD [address] [place] [address] Health Maintenance Due Date Last Done Comments Hepatitis B Vaccines (1 of 3 - 19+ 3-dose series) 1995 Cervical Cancer Screening Pa p with HPV Testing (Age 30 to 64) Every 5 Years 2006 Mammogram Screening 10/14/2023 10/14/2021 COVID-19 Vaccine (3 - 2023-2 5 season) 2024 07/01/2021, 05/26/2021 PHQ-2 (Physician Council) 10/04/2024 11/29/2023 Annual Physical 11/29/2024 11/29/2023 Cervical Cancer Screening Pa p Smear (Age 30 to 64) Every 3 Years 07/16/2025 07/16/2022 Cervical Cancer Screening wi th HPV 07/16/2025 Colorectal Cancer Screening FIT-DNA (3 Years) 02/13/2027 02/14/2024, 02/14/2024 DTaP, Tdap and Td Vaccines ( 2 - Td or Tdap) 11/29/2033 11/29/2023 Hepatitis C Completed 12/06/2023 Meningococcal B Vaccine Aged Out No l onger eligible based on patient's age to complete this topic Meningococcal Vaccine Aged Out No blade redd eligible based on patient's age to complete this topic Pneumococcal Vaccine: Pediatrics (0 to 5 Years) and At-Risk Patients (6 to 49 Years) Aged Out No longer eligible b ased on patient's age to complete this topic RSV Immunizations Under 20 Months Aged Out No longer eligible b ased on patient's age to complete this topic Procedures Procedure Name Priority Date/Time Associated Diagnosis Comments COLOGUARD (EXACT SCIENCE) Routine 02/14/2024 9:40 AM CDT Screen for colon cancer HEPATITIS C ANTIBODY Routine 12/06/2023 9:53 AM SERVICE PLANNER Annual physical exam Establishing care with new doctor, encounter for General medical exam Encounter for hepatitis C screening test for low risk patient from Last 3 Months or Most Recently Relevant to Health Maintenance Results * COLOGUARD (EXACT SCIENCE) (02/14/2024 9:40 AM CDT) COLOGUARD RESULT Negative Negative [employer] (CLIA #:[id number]) Comment: NEGATIVE TEST RESULT. A negative Cologuard result indicates a low likelihood that a colorectal cancer (CRC) or advanced adenoma (adenomatous polyps with more advanced pre-malignant features) is present. The chance that a person with a negative Cologuard test has a colorectal cancer is less than 1 in 1500 (negative predictive value >99.9%) or has an advanced adenoma is less than 5.3% (negative predictive value 94.7%). These data are based on a prospective cross-sectional study of 10,000 individuals at average risk for colorectal cancer who were screened with both Cologuard and colonoscopy. (Christina Carvalho al, N Engl J Med 2014;370(14):6270-6077) The normal value (reference range) for this assay is negative. COLOGUARD RE-SCREENING RECOMMENDATION: Periodic colorectal cancer screening is an important part of preventive healthcare for asymptomatic individuals at average risk for colorectal cancer. Following a negative Cologuard result, the [place] Cancer Society and U.S. Multi-Society Task Force screening guidelines recommend a Cologuard re-screening interval of 3 years. References: [place] [employer] Guideline for Colorectal Cancer Screening: https://www.cancer.org/cancer/ikrqi-divxnw-wbtqrg/tnnjzfkbo-mtocbocdf-ibnmtny/ac s-rec ommendations.html.; Buzz DK, Awais RESENDIZ, Lance GoodwinK, Colorectal Cancer Screening: Recommendations for Physicians and Patients from the U.S. Multi-Society Task Force on Colorectal Cancer Screening , Am J Gastroenterology 2017; 112:2897-7354. TEST DESCRIPTION: Composite algorithmic analysis of stool DNA-biomarkers with hemoglobin immunoassay. Quantitative values of individual biomarkers are not reportable and are not associated with individual biomarker result reference ranges. Cologuard is intended for colorectal cancer screening of adults of either sex, 45 years or older, who are at average-risk for colorectal cancer (CRC). Cologuard has been approved for use by the U.S. FDA. The performance of Cologuard was established in a cross sectional study of average-risk adults aged 50-84. Cologuard performance in patients ages 45 to 49 years was estimated by sub-group analysis of near-age groups. Colonoscopies performed for a positive result may find as the most clinically significant lesion: colorectal cancer [4.0%], advanced adenoma (including sessile serrated polyps greater than or equal to 1cm diameter) [20%] or non- advanced adenoma [31%]; or no colorectal neoplasia [45%]. These estimates are derived from a prospective cross-sectional screening study of 10,000 individuals at average risk for colorectal cancer who were screened with both Cologuard and colonoscopy. (Christina Deal, N Engl J Med 2014;370(14):8431-6232.) Cologuard may produce a false negative or false positive result (no colorectal cancer or precancerous polyp present at colonoscopy follow up). A negative Cologuard test result does not guarantee the absence of CRC or advanced adenoma (pre-cancer). The current Cologuard screening interval is every 3 years. ([place] Cancer Society and U.S. Multi-Society Task Force). Cologuard performance data in a 10,000 patient pivotal study using colonoscopy as the reference method can be accessed at the following location: www.[employer].tocario/results. Additional description of the Cologuard test process, warnings and precautions can be found at www.cologuard.com. STOOL STOOL SPECIMEN / Unknown 02/14/2024 9:40 AM CDT 02/15/2024 7:57 AM CDT us Migel Virk MD BODY FLUIDS AND STOOLS ORDERABLE S Final Result Performing Organization Address [facility] Co de Phone Number [employer] ([address] [facility]) [address] [place] [address], [employer] (CLIA #:[id number]) [address] [place] [address] * HEPATITIS C ANTIBODY (12/06/2023 9:53 AM SERVICE PLANNER) HEPATITIS C AB NON-REACTI VE NON-REACT DC 12/06/2023 7:11 PM SERVICE PLANNER [facility] Comment: ANTIBODIES TO HCV NOT DETECTED. DOES NOT EXCLUDE THE POSSIBILITY OF EXPOSURE TO HCV. 12/06/2023 9:53 AM SERVICE PLANNER Migel Virk MD LABORATORY Final Result Performing Organization Address [facility] Co de Phone Number [facility] [address] [place] [address], [phone] from Last 3 Months or Most Recently Relevant to Health Maintenance Insurance [facility] Care Teams Door And Arrival Attendant Relationship Specialty Start Date End Date Migel Virk MD [address] [address] PCP - General INTERNAL MEDICINE 11/29/23
--- OUTSIDE RECORDS SUMMARY | 2025-02-16 09:49 | XMS_ITS | Encounter Summary ---
Author Organization [facility] Address [facility] [place] [address] Care Team Providers Care Solid Waste Analyst Name Role Phone Migel Virk MD Primary Care Provider [phone] Encounter Details Date Type Department Care Team (Late Contact Info) Description 12/07/2023 [employer] 2 Go Message Enc [address] [address] [facility] Social History Tobacco Use Types Packs/Day Years Used Date Smoking Tobacco: Never Smokeless Tobacco: Never Alcohol Use Standard Drinks/Week Comments Not Currently 0 (1 standard drink = 0.6 oz pur e alcohol) PHQ-2 Answer Date Recorded Patient Health Questionnaire-2 Score 0 11/29/2023 Comments Unknown Sex and Gender Information Value Date Recorded Sex Assigned at Not on file Legal Sex Female 9:39 AM EXCEPTIONAL STUDENT EDUCATION TEACHER Gender Identity Not on file Sexual Orientation Not on file documented as of this encounter Plan of Treatment Upcoming Encounters Date Type Department Care Team (Late Contact Info) Description 04/13/2025 9:40 AM CDT [facility] [address] [address] [place] [address] Migel Virk MD [address] [place] [address] documented as of this encounter Visit Diagnoses Not on filedocumented in this encounter Additional Health Concerns Assessment Noted Time PHQ-9 Depression Total Score: 5 11/29/19 24 2:48 PM EXCEPTIONAL STUDENT EDUCATION TEACHER documented as of this encounter Care Teams Solid Waste Analyst Relationship Specialty Start Date End Date Migel Virk MD [address] [facility] [address] [place] [address] PCP - General INTERNAL MEDICINE 11/29/23 documented as of this encounter
--- OUTSIDE RECORDS SUMMARY | 2025-02-16 09:49 | XMS_ITS | Encounter Summary ---
Author Organization [facility] Address formerly [facility] [place] [address] Care Team Providers Care Pilot Supervisor Name Role Phone Migel Virk MD Primary Care Provider [phone] Encounter Details Date Type Department Care Team (Latest Contact Info) Description 05/12/2024 [employer] [facility] [address] [address] [place], [place] [id number] Migel Virk MD [address] [place] [address] Heavy bleeding and low iron Social History Tobacco Use Types Packs/Day Years Used Date Smoking Tobacco: Never Smokeless Tobacco: Never Comments:Counseled by Dr. Viviana vidal. Alcohol Use Standard Drinks/Week Comments Not Currently 0 (1 standard drink = 0.6 oz pur e alcohol) PHQ-2 Answer Date Recorded Patient Health Questionnaire-2 Score 0 11/29/2023 Comments No Sex and Gender Information Value Date Recorded Sex Assigned at Not on file Legal Sex Female 9:39 AM MANIFOLD OPERATOR Gender Identity Not on file Sexual Orientation Not on file documented as of this encounter Plan of Treatment Upcoming Encounters Date Type Department Care Team (Late st Contact Info) Description 04/13/2025 9:40 AM CDT Office Visit [facility] Multispecialty [address] [place], [place] [id number] Migel Virk MD [address] [address] documented as of this encounter Visit Diagnoses Not on filedocumented in this encounter Additional Health Concerns Assessment Noted Time PHQ-9 Depression Total Score: 5 11/29/19 24 2:48 PM MANIFOLD OPERATOR documented as of this encounter Care Teams Pilot Supervisor Relationship Specialty Start Date End Date Migel Virk MD [address] [address] PCP - General INTERNAL MEDICINE 11/29/23 documented as of this encounter
--- OUTSIDE RECORDS SUMMARY | 2025-02-16 09:49 | XMS_ITS | Encounter Summary ---
Author Organization [facility] Address [address] [place] [address] Care Team Providers Care Tour Narrator Name Role Phone Jerri Bo MD Primary Care Provider [phone] Encounter Details Date Type Department Care Team (Late st Contact Info) Description 01/16/2022 Telephone [facility] [address] [place] [address] [address] [place], [place] [id number] Jerri Bo MD [address] [place] [address] [address] [place] [address] Social History Tobacco Use Types Packs/Day Years Used Date Smoking Tobacco: Never Smokeless Tobacco: Never Alcohol Use Standard Drinks/Week Comments Not Currently 0 (1 standard drink = 0.6 oz pur e alcohol) PHQ-2 Answer Date Recorded PHQ-2 Total Score (If total score is 3 or more points, staff should administer the PHQ-9) 0 12/16/2021 Comments No Sex and Gender Information Value Date Recorded Sex Assigned at Not on file Legal Sex Female 8:40 AM MULE DEVELOPER Gender Identity Female 09/11/2021 9:08 AM MULE DEVELOPER Sexual Orientation Straight 09/11/2021 9: 08 AM MULE DEVELOPER documented as of this encounter Plan of Treatment Not on file documented as of this encounter Visit Diagnoses Not on filedocumented in this encounter Care Teams Tour Narrator Relationship Specialty Start Date End Date Jerri Bo MD PCP - General Family Medicine 10/09/21 documented as of this encounter
--- OUTSIDE RECORDS SUMMARY | 2025-02-16 09:49 | XMS_ITS | Clinical Summary ---
Author Organization [facility] Address [address] [facility] [address] [place] [address] Phone Care Team Providers Care Press Tender Smoke Signal Name Role Phone Jerri Bo MD Primary Care Provider [phone] Allergies Active Allergy Reactions Criticality Noted Date [...] 04/2022 Assessment & Plan (11/10/2021 8:43 AM SPINNER FRAME): All recent/available/pertinent diagnostic testing, relevant ED/hospital notes, relevant automotive service consultant recommendations reviewed with pt. Healthy lifestyle [...] levels Assessment & Plan (11/10/2021 8:47 AM SPINNER FRAME): Results reviewed and discussed with pt. Will [...] provided. Assessment & Plan (11/10/2021 8:28 AM SPINNER FRAME): BMI Follow-up includes: nutrition counseling, exercise counseling and education provided. Assessment & Plan (10/09/2021 1:36 PM SPINNER FRAME): BMI Follow-up includes: nutrition counseling, exercise counseling [...] symptoms.. Assessment & Plan (11/10/2021 8:56 AM SPINNER FRAME): Uncontrolled. Will change hctz to chlorthalidone 25 mg. Recheck in 1 month Will add carvidilol Assessment & Plan (10/09/2021 1:35 PM SPINNER FRAME): Not adequately controlled. Pt endorses noncompliance. Will return in 1 month with home monitor for calibration Hypersomnia 10/09/2021 Sleep apnea in adult 10/09/2021 Assessment & Plan (12/16/2021 3:39 PM CDT): Pt states that all symptoms are resolved so she is not interested in pursuing evaluation Assessment & Plan (10/09/2021 1:37 PM SPINNER FRAME): Symptoms consistent. Will obtain PSG Recurrent occipital headache 10/09/2021 Assessment & Plan (12/16/2021 3:37 PM CDT): Continues to be free of headaches Assessment & Plan (11/10/2021 8:44 AM SPINNER FRAME): Pt has not had any headaches since last visit Assessment & Plan (10/09/2021 1:36 PM SPINNER FRAME): Etiology unclear. May be related to poor sleep Chronic fatigue 10/09/2021 Assessment & Plan (10/09/2021 1:33 PM SPINNER FRAME): Pt wakes up not rested. Feels markedly fatigued on most days. Cannot rule out sleep apnea. Immunizations Immunization Administration Dates Next Due Influenza, Unspecified 02/05/2022(Deferred: Ivory ent Refused) Pfizer SARS-CoV-2 Monovalent Vaccination (12+ Yrs) PURPLE 07/01/2021,05/26/2021 Surgical History Surgery Date Site/Laterality Comments TUBAL LIGATION 12/02/2004 - 01/01/2005 Medical History Medical History Date Comments Anemia Hypertension Menstrual problem Family History Medical History Relation Name Comments Hypertension Father Cancer Maternal Grandmother Seema Rand Hypertension Maternal Grandmother Seema Rand Hyperparathyroidism Mother Diabetes Sister Relation Name Status Comments Father Alive Maternal Grandmother Seema Rand Mother Alive Sister Alive Social History Tobacco Use Types Packs/Day Years [...] on file Legal Sex Female 8:40 AM SPINNER FRAME Gender Identity Female 09/11/2021 9:08 AM SPINNER FRAME Sexual Orientation Straight 09/11/2021 9: 08 AM SPINNER FRAME Obstetrics History Last Filed Vital Signs Vital Sign Reading Time Taken Comments Blood Pressure 123/81 07/16/2022 8:30 AM CDT Pulse 80 07/16/2022 8:30 AM CDT Temperature 36.3 C (97.4 F) 02/05/2022 11:55 AM CDT Respiratory Rate 18 11/14/2021 2:17 AM SPINNER FRAME Oxygen Saturation 98% 07/16/2022 8:30 AM CDT Inhaled Oxygen Concentration - - Weight 103.4 kg (228 lb) 07/16/2022 8:30 AM CDT Height 172.7 cm (5' 8 ) 07/16/2022 8:30 AM CDT Body Mass Index 34.67 07/16/2022 8:30 AM CDT Plan of Treatment Health Maintenance Due Date Last Done Comments Colon Cancer Screening-Colonoscopy 1976 DTaP/Tdap/Td Vaccine (1 - Tdap) 1987 Hepatitis B Screening 1994 Breast Cancer Screening-Mammogram 10/14/2022 10/14/2021 Regular Well Visit/Exam 18-64 11/10/2022 11/10/2021 Cervical Cancer Screening 07/16/2023 07/16/2022 Depression Screening 07/16/2023 07/16/2022, 02/05/2022, 12/16/2021, Additional history exists Covid-19 Vaccine ( season) 2024 07/01/2021, 05/26/2021 Influenza Vaccine (Season Ended) 2025 Hepatitis C Screening Completed 10/09/2021 Pneumococcal vaccine <65 Aged Out No longer eligible based on patient's age to complete this topic Procedures Procedure Name Priority Date/Time Associated Diagnosis Comments PAP AND HIGH RISK HPV, REFLEX TO GENOTYPING Routine 07/16/2022 9:05 AM CDT SCREENING MAMMOGRAM BILATERAL W THEODORE Schedule Routine, Read Routine (OP Routine) 10/14/2021 2:53 PM SPINNER FRAME Breast cancer screening by mammogram HEPATITIS C ANTIBODY Routine 10/09/2021 2:11 PM SPINNER FRAME Need for hepatitis C screening test from Last 3 Months or Most Recently Relevant to Health Maintenance Results * Pap and High Risk HPV, reflex to Genotyping (07/16/2022 9:05 AM CDT) Pap test 07/16/2022 9:05 AM CDT 07/17/2022 5:48 AM CDT Narrative 07/24/2022 2:39 PM CDT [facility] results best viewed via link to PDF [facility] [place] [address] Note to Patients: This report may contain [...] REPORT FINAL Patient Name: REID NARANJO Gender: F : 1975 (Age: 46) Address: [address] [place] [address] Hospital #: [id number] Service: INTERNET APPLICATION DEVELOPER Location: Patient Type: [facility] SPECIMEN Taken: 07/16/2022 Received: 07/17/2022 Accessioned: 07/20/2022 [...] 69. This HPV test was performed at [facility] in [place], [place] utilizing the Gen-Probe Aptima assay. dxs/07/24/2022 10:26 By this signature, I attest that the above diagnosis is based upon my personal examination of the slides(and/or other material indicated in the diagnosis). Crystal Solis M.D. Report Electronically Reviewed and Signed Out By Crystal Solis M.D. 07/24/2022 14:39:32 JACY Shepherd(ASCP), [facility] Cervicovaginal Cytology (Pap Test) Disclaimer: The Pap [...] screening. The HPV test was performed by [facility], [address] [place] [address]. Report Images and scanned documents, if included only viewable in PDF version The performance characteristics of some immunohistochemical stains, in-situ hybridization and fluorescence in-situ hybridization tests and immunophenotyping by flow cytometry cited in this report (if any) were determined by the Surgical Pathology Department at [facility] as part of an ongoing director quality systems program and in compliance with federally mandated [...] determined by the Surgical Pathology Department of [facility]. It has not been cleared or approved by the U. S. Food and Drug Administration. Jerri Bo MD LAB CYTOLOGY ORDERABLES Final Result * Screening Mammogram Bilateral W Theodore (10/14/2021 2:53 PM SPINNER FRAME) Anatomical Region Laterality Modality Breast Bilateral Mammography Narrative 10/16/2021 11:30 AM SPINNER FRAME Mammogram Technique: Bilateral Digital Breast Tomosynthesis, Bilateral [...] * Hepatitis C antibody (10/09/2021 2:11 PM SPINNER FRAME) Hep C Ab NON-REACTI VE NON-REACT DC Access [facility] SIGNAL TO CUT-OFF 0.05 <1.00 [facility] Comment: HCV antibody was non-reactive. There is no laboratory evidence of HCV infection. In most cases, no further action is required. However, if recent HCV exposure is suspected, a test for HCV RNA (test code 74721) is suggested. For additional information please refer to http://education.hiogi/faq/WIB75d1 (This link is being provided for informational/ educational purposes only.) Blood specimen (specimen) 10/09/2021 2:11 PM SPINNER FRAME 10/10/2021 11:58 PM SPINNER FRAME Jerri Bo MD LAB MICROBIOLOGY - GENERAL OR DERABLES Final Result [employer] [facility] [address] [place] [address] from Last 3 Months or Most Recently Relevant to Health Maintenance Insurance [facility] PL[facility] HMO/PPO Address: [address] [address] [place] [address] [employer] [facility] CHOICE PLUS [facility] HMO/PPO Address: [address] [address] [place] [address] [place] DEPART[place] LAB[place] Care Teams Press Tender Smoke Signal Relationship Specialty Start Date End Date Jerri Bo MD PCP - General Family Medicine 10/09/21
--- OUTSIDE RECORDS SUMMARY | 2025-02-16 09:49 | XMS_ITS | Encounter Summary ---
Author Organization [facility] Address [facility] [place] [address] Care Team Providers Care Flight Director Name Role Phone Migel Virk MD Primary Care Provider [phone] Encounter Details Date Type Department Care Team (Late st Contact Info) Description 06/21/2024 MyChart Message [facility] [place] [address] [place], [place] [id number] Thalia Woodward, INTERIOR MECHANIC [address] [place] [address] FMLA forms Social History Tobacco Use Types Packs/Day Years [...] on file Legal Sex Female 9:39 AM TOMATO GRADER Gender Identity Not on file Sexual Orientation Not on file documented as of this encounter Plan of Treatment Upcoming Encounters Date Type Department Care Team (Late st Contact Info) Description 04/13/2025 9:40 AM CDT Office Visit [facility] Mult[facility]pecialty [facility] [place] [address] [place], [place] [id number] Migel Virk MD [address] [address] documented as of this encounter Visit Diagnoses Not on filedocumented in this encounter Additional Health Concerns Assessment Noted Time PHQ-9 Depression Total Score: 5 11/29/19 24 2:48 PM TOMATO GRADER documented as of this encounter Care Teams Flight Director Relationship Specialty Start Date End Date Migel Virk MD [address] [address] PCP - General INTERNAL MEDICINE 11/29/23 documented as of this encounter
--- OUTSIDE RECORDS SUMMARY | 2025-02-16 09:49 | XMS_ITS | Encounter Summary ---
Author Organization [facility] Address [facility] [place] [address] Care Team Providers Care Medical Pathology Teacher Name Role Phone Migel Virk MD Primary Care Provider [phone] Encounter Details Date Type Department Care Team (Late st Contact Info) Description 12/07/2023 Therapy Plan [facility] [place] [address] Migel Virk MD [facility] [address] [address] Social History Tobacco Use Types Packs/Day Years Used Date Smoking Tobacco: Never Smokeless Tobacco: Never Alcohol Use Standard Drinks/Week Comments Not Currently 0 (1 standard drink = 0.6 oz pur e alcohol) PHQ-2 Answer Date Recorded Patient Health Questionnaire-2 Score 0 11/29/2023 Comments Unknown Sex and Gender Information Value Date Recorded Sex Assigned at Not on file 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 Gender Identity Not on file Sexual Orientation Not on file documented as of this encounter Plan of Treatment Upcoming Encounters Date Type Department Care Team (Late Contact Info) Description 04/13/2025 9:40 AM CDT Office Visit [facility] Mult[facility]ialty Care - [place] [address] [address] [place] [address] Migel Virk MD [facility] [address] [id number] documented as of this encounter Visit Diagnoses Diagnosis Iron deficiency anemia, unspecified- Primary documented in this encounter Additional Health Concerns Assessment Noted Time PHQ-9 Depression Total Score: 5 11/29/19 24 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
--- OUTSIDE RECORDS SUMMARY | 2025-02-16 09:49 | XMS_ITS | Encounter Summary ---
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 Gender Identity Not on file Sexual Orientation Not on file documented as of this encounter Plan of Treatment Upcoming Encounters Date Type Department Care Team (Late Contact Info) Description 04/13/2025 9:40 AM CDT Office Visit [facility] Mult[facility] - [place] [address] [address] [place] [address] Migel Virk MD [facility] [address] [id number] documented as of this encounter Visit Diagnoses Not on filedocumented in this encounter Additional Health Concerns Assessment Noted Time PHQ-9 Depression Total Score: 5 11/29/19 24 2:48 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
--- OUTSIDE RECORDS SUMMARY | 2025-02-16 09:49 | XMS_ITS | Encounter Summary ---
Author Organization [facility] Address [facility] [place] [address] Care Team Providers Care Bus Greaser Name Role Phone Migel Virk MD Primary Care Provider [phone] Encounter Details Date Type Department Care Team (Late st Contact Info) Description 06/21/2024 [employer] Message Enc [facility] Multispecialty [facility] - [place] [address] [place] [address] [facility] Provider FMLA Social History Tobacco Use Types Packs/Day Years [...] on file 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 Gender Identity Not on file Sexual Orientation Not on file documented as of this encounter Plan of Treatment Upcoming Encounters Date Type Department Care Team (Late st Contact Info) Description 04/13/2025 9:40 AM CDT Office Visit [facility] Multispecialty [facility] - [place] [address] [address] [place] [address] Migel Virk MD [address] [place] [address] documented as of this encounter Visit Diagnoses Not on filedocumented in this encounter Additional Health Concerns Assessment Noted Time PHQ-9 Depression Total Score: 5 11/29/19 24 2:48 PM PLASTER TENDER documented as of this encounter Care Teams Bus Greaser Relationship Specialty Start Date End Date Migel Virk MD [address] [address] PCP - General INTERNAL MEDICINE 11/29/23 documented as of this encounter
[2025-02-16 10:29] LABS: Hematocrit 38.7 % (37.0-47.0); Hemoglobin 12.5 g/dL (12.0-15.0)
[2025-02-16 11:33] LABS: Iron 54 ug/dL (37-170)
[2025-02-16 11:44] LABS: Percent Iron Saturation 16 % (20-50)
== END 2025-02-16 09:46 | disposition home or self-care (01) ==
LOC: ANHLAB 09:46
PROVIDERS: Visit Provider Obstetrics & Gynecology
DX: D64.9 Anemia, unspecified (principal)
CPT/HCPCS: 36415; 83540; 83550; 85014; 85018